=== PATIENT | female | born 2000 | race Caucasian/White ===

== ENCOUNTER → 2018-09-24 | Outpatient (CLI) | payer BC ==
[~2018-09-24] MED LIST: ALBU2.5V36 INH; AZIT-1 PO; BUDE0.5A6 INH; CEPH500C24 PO; FLUO40CA67 PO; IOPAMIDOL 76% 150 ML INFUS BTL 150 ML ONE; NORE-22 PO
--- NOTE | 2018-09-24 13:31 | RADIOLOGY IMAGING REPORT ---
FACILITY: [facility] PATIENT NAME: Kavitha Pichardo : 2000 MR: [id number] V: [id number] EXAM DATE: ORDERING PHYSICIAN: RAKESH ROSS TECHNOLOGIST: Location: [facility] Patient: Kavitha Pichardo : 2000 Visit/Account:[id number] Date of Sevice: 09/24/2018 CT ABDOMEN PELVIS W & W/O CONTRAST HISTORY: Right flank pain TECHNIQUE: Axial images acquired through the abdomen/pelvis both with and without IV contrast.. Jimi nal and sagittal reformatting also performed.Dose Lowering Technique One of the following dose optimization techniques was utilized in the performance of this exam: Autom ated exposure control; adjustment of the mA and/or kV according to the patient's size; or use of an i terative reconstruction technique. Specific details can be referenced in the facility's radiology C T exam operational policy. CONTRAST: 75 mL Isovue-[id number] COMPARISON: None. FINDINGS: Visualized lung bases: Negative. Hepatobiliary: The left lobe of the liver appears prominent Spleen: Negative. Adrenals: Negative. Pancreas: Negative. Kidneys ureters and bladder: There is moderate perinephric stranding on the right extending into the right paracolic gutter. There are patchy areas of hypoperfusion scattered throughout the right kidne y extremely concerning for multifocal pyelonephritis. There is no evidence of hydronephrosis or hydr oureter. There is enhancement of the right ureter also consistent with a urinary tract infection. . The bladder is decompressed Genitalia: Uterus is anteverted GI: The appendix is visualized and does not appear inflamed. Is a moderate amount of fecal material seen in the cecum Vessels/spaces/nodes: There is a small to moderate amount of free pelvic fluid Bones/soft tissues: Negative. Additional findings: None pertinent. IMPRESSION: There is moderate perinephric stranding on the right extending into the right paracolic gutter. Ther e are patchy areas of hypoperfusion throughout the right kidney extremely concerning for multifocal p yelonephritis. There is also enhancement of the right ureter consistent with the urinary tract infec tion. Small to moderate amount of free pelvic fluid which may be physiologic. Results were called to RAKESH ROSS at 09/24/2018 1:27 PM. Report Dictated By: Alem Olivas MD at 09/24/2018 1:14 PM Report E-Signed By: Alem Olivas MD at 09/24/2018 1:27 PM WSN:ILIANA
== END ==
LOC: CT 11:58
PROVIDERS: ATTEND Pediatrics Adolescent Medicine
DX: R10.9 Unspecified abdominal pain (principal); N10 Acute pyelonephritis
CPT/HCPCS: 74178; Q9967